=== PATIENT | female | born 1950 | race Caucasian/White ===

== ENCOUNTER 2016-09-20 11:57 | Day surgery (SDC) | payer OTHER ==
[2016-09-20] MEDS ORDERED: NS 1,000 ML IV ONE (12:02)
[2016-09-20] MEDS ORDERED: BENZOCAINE UNIT DOSE SPRAY HURRICAINE MM ONE (12:02)
[2016-09-20] MEDS ORDERED: fentaNYL 100 MCG/2 ML INJ IVP ONE (12:02)
[2016-09-20] MEDS ORDERED: MIDAZOLAM 2 MG/2 ML VIAL IVP ONE (12:02)
--- NOTE | 2016-09-20 13:51 | PDANEPAE ---
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 rheumatic - Pulmonary History Hx Sleep Apnea: No ANE Review of Systems Review of systems is: negative ANE Patient History - Allergies Allergies/Adverse Reactions: Sulfa (Sulfonamide Antibiotics) Allergy (Verified 09/20/16 12:01) - Home Medications Home medications: home medication list seen and reviewed Home Medications: Atenolol 25 mg PO DAILY 09/20/16 [Last Taken 09/20/16 07:00] Calcium 500 mg PO DAILY 09/20/16 [Last Taken 09/19/16 07:00] LYSINE 1,000 mg PO DAILY 09/20/16 [Last Taken 09/19/16 07:00] Multivitamin 1 tab PO DAILY 09/20/16 [Last Taken 09/19/16 07:00] Tylenol 1,000 mg PO PRN 09/20/16 [Last Taken 09/19/16] Vitamin B12 PO DAILY 09/20/16 [Last Taken 09/19/16 07:00] Vitamin C 500 mg PO DAILY 09/20/16 [Last Taken 09/19/16 07:00] Vitamin D3 2,000 unit PO DAILY 09/20/16 [Last Taken 09/19/16 07:00] Voltaren 2 gm PRN 09/20/16 [Last Taken 09/20/16 07:00] - Anes Hx Anes Hx: no prior problems - Smoking Hx Smoking Status: Former smoker ANE Labs/Vital Signs - Vital Signs Height: 163 cm Weight: 54.4 kg ANE Physical Exam - Airway Neck exam: FROM Mallampati Score: Class 1 Mouth exam: normal dental/mouth exam - Pulmonary Pulmonary: no respiratory distress - Cardiovascular Cardiovascular: regular rate and rhythym - ASA Status ASA Status: III ANE Anesthesia Plan Anesthesia Plan: GA with mask
[2016-09-20] MEDS ORDERED: PROPOFOL 200 MG/20 ML VIAL ONE ×2 (13:52)
--- NOTE | 2016-09-21 15:12 | ECHO ---
[id number] + + [address] : : [place] [id number] : : [phone] + + Transesophageal Echocardiographic Report + -------+ :Name: VEL CASTREJON JStudy Date: 09/20/2016 01:45 PM : : Hospital Admission Number: [id number] Locati on: [facility]: :: 1950 Gender: Female : :Age: 66 yrs Race: WH : :Reason For Study: evaluate /AI : :History: rheumatic heart disease : + -------+ MMode/2D Measurements \T\ Calculations LVOT diam: 2.2 cm LVOT area: 3.8 cm2 Normal Measurement Values: + + :LVIDd (3.5-5.7cm) IVSd (0.6-1.1cm) LVPWd (0.6-1.1cm) Aortic Root (2.0-3.7cm)Left Atrium (1.5-4.0cm): :LV Vol(d) (76-115ml) LV Vol(s) (29-48ml) Ejec Fraction (50-65%)PV David (0.6- 1.2m/s) TV David (0.4-1.0m/s) : :MV E David (0.8-1.0m/s)MV A David (0.3-1.0m/s)LVOT David (0.7-1.2m/s) Asc Ao David ( 0.9-1.8m/s) : + + Doppler Measurements \T\ Calculations MV V2 mean: 89.2 cm/sec Ao V2 max: 413.3 cm/sec AI max david: 444.8 cm/sec MV mean P.3 mmHg Ao max P.3 mmHg AI max P.3 mmHg MV V2 VTI: 24.5 cm Ao mean P.0 mmHg AI dec slope: 347.1 cm/sec2 Ao V2 mean: 355.3 cm/secAI P1/2t: 375.3 msec Ao V2 VTI: 124.8 cm LV The left ventricle is normal in size and function. There is moderate concentric left ventricular hypertrophy. Ejection Fraction = 55-60%. RV The right ventricle is normal in size and function. Atria The left atrial size is normal. Right atrial size is normal. The interatrial septum is intact with no evidence for an atrial septal defect. Mitral Valve The mitral valve is normal in structure and function. There is no mitral valve stenosis. There is mild mitral regurgitation. Aortic Valve The aortic valve is trileaflet. Mild to moderate amount of calcification/thickening mainly on the leaflet tips. Severe valvular aortic stenosis. Max velocity across the AV 4.1m/s, 57/68 mmHg mean and max pressure gradients. Moderate to severe aortic regurgitation. Pulmonic Valve The pulmonic valve is normal in structure and function. There is no pulmonic valvular regurgitation. Tricuspid Valve The tricuspid valve is normal in structure and function. There is mild tricuspid regurgitation. Vessels Mild atherosclerotic plaque(s) in the ascending aorta. Pericardium There is no pericardial effusion. Conclusion A 2D transesophageal echocardiogram with Doppler and color flow Doppler was performed. The left ventricle is normal in size and function. There is moderate concentric left ventricular hypertrophy. There is mild mitral regurgitation. Mild to moderate amount of calcification/thickening mainly on the leaflet tips. Moderate to severe aortic regurgitation. Severe valvular aortic stenosis. Max velocity across the AV 4.1m/s, 57/68 mmHg mean and max pressure gradients. There is mild tricuspid regurgitation. Ejection Fraction = 55-60%. Final Reading Physician: Slava Valdovinos electronically signed on 09/21/2016 03:11 PM Ordering Physician: Slava Valdovinos Performed By: Slava Valdovinos
--- NOTE | 2016-09-23 08:49 | POSTANESTH ---
Post Anesthetic Evaluation Cardiovascular Status: Normal, Stable Respiratory Status: Normal, Stable Level of Consciousness/Mental Status: Can Participate in Eval Pain Control: Adequate, Prn Tx Ordered Nausea/Vomiting Control: Adequate, Prn Tx Ordered Complications Possibly Related to Anesthesia: None Noted
== END 2016-09-20 15:46 | disposition home or self-care (01) ==
LOC: FCATH 11:57
PROVIDERS: ATTEND Internal Medicine Cardiovascular Disease
PROC: B245ZZ4 Ultrasonography of Left Heart, Transesophageal (ICD-10-PCS; principal; 2016-09-20)
DX: I08.2 Rheumatic disorders of both aortic and tricuspid valves (principal); I10 Essential (primary) hypertension; I70.0 Atherosclerosis of aorta; Z82.49 Family history of ischemic heart disease and other diseases of the circulatory system; Z87.891 Personal history of nicotine dependence; Z88.2 Allergy status to sulfonamides
CPT/HCPCS: J2704

== ENCOUNTER → 2016-10-13 | Outpatient (CLI) | payer OTHER | LOC: CIMAGING 08:03 | PROVIDERS: ATTEND Thoracic Surgery (Cardiothoracic Vascular Surgery) | DX: I35.1 Nonrheumatic aortic (valve) insufficiency (principal); R91.1 Solitary pulmonary nodule | CPT/HCPCS: 71250-PO ==

== ENCOUNTER 2017-04-05 11:14 | Inpatient (IN) | payer OTHER ==
[2017-04-05] MEDS ORDERED: ASPIRIN EC 325 MG TAB PO ONE (11:18)
[2017-04-05] MEDS ORDERED: FAMOTIDINE 20 MG TAB PO ONE (11:18)
[2017-04-05] MEDS ORDERED: DIAZEPAM 5 MG TAB PO ONE (11:18)
[2017-04-05] MEDS ORDERED: NS 1,000 ML IV ONE (11:18)
[2017-04-05] MEDS ORDERED: diphenhydrAMINE 25 MG CAP PO ONE (11:18)
--- NOTE | 2017-04-05 11:36 | CPEKG ---
Heart Rate: 60 RR Interval: 1000 P-R Interval: 164 QRSD Interval: 82 QT Interval: 412 QTC Interval: 412 P Humphrey: 39 QRS Humphrey: -1 T Wave Humphrey: 40 EKG Severity - NORMAL ECG - EKG Impression: SINUS RHYTHM Electronically Signed By: Estevan Harper 05-Apr-2017 12:28:26
[2017-04-05 11:54] LABS: PLATELET COUNT 186 10^3/uL (150-400)
[2017-04-05 12:01] LABS: INR 0.91 (0.83-1.16); PROTIME(PATIENT) 12.5 SEC (12.0-15.0)
[2017-04-05] MEDS ORDERED: fentaNYL 100 MCG/2 ML INJ ONE (12:20)
[2017-04-05] MEDS ORDERED: LIDOCAINE 1% 300 MG/30 ML SDV ONE (12:20)
[2017-04-05] MEDS ORDERED: IOPAMIDOL (ISOVUE-370) 150 ML BTL IV ONE (12:20)
[2017-04-05] MEDS ORDERED: MIDAZOLAM 2 MG/2 ML VIAL ONE ×2 (12:20)
--- NOTE | 2017-04-05 12:51 | PDPROPOC ---
Sedation Plan of Care Sedation Plan of Care: vital signs stable, mental status noted, patient educated of risks, benefits, alternatives, patient can tolerate sedation ASA Classification: ASA 2 Planned drugs: fentanyl, midazolam Mallampati Score: Class 2 Mallampati Reference Image: Patient passed 3-3-2 rule?: Yes
--- NOTE | 2017-04-05 12:55 | PDGENHP ---
History & Physical Chief Complaint: SOB/Fatigue History of Present Illness: 66 year old female with symptomatic severe, rheumatic aortic stenosis and moderate to severe AI and mild pulmonary hypertension who presents for pre operative LHC in anticipation of AVR and Mitral valve ring tomorrow with Dr. Oconnor. Pertinent Past, Social, Family History: PMH: Rhematic Aortic stenosis, Moderate AI, Moderate MR. Soc hx: . former smoker (smoked 4 years) rare etoh Relevant Physical Exam: Awake, alert, appropriate Cardiorespiratory Assessment: S1/S2, 2/6 systolic murmer. CTAB
[2017-04-05] MEDS ORDERED: OXYCODONE/APAP 5/325 TAB PO PRN (13:56)
[2017-04-05] MEDS ORDERED: NITROGLYCERIN 0.4 MG BTL SL PRN (13:56)
[2017-04-05] MEDS ORDERED: ONDANSETRON 4 MG/2 ML VIAL IVP PRN (13:56)
[2017-04-05] MEDS ORDERED: HYDROCODONE/APAP 5/325 TAB PO PRN (13:56)
[2017-04-05] MEDS ORDERED: ATROPINE SULFATE 1 MG/10 ML SYR IVP PRN (13:56)
[2017-04-05] MEDS ORDERED: ACETAMINOPHEN 500 MG TAB PO PRN (15:26)
--- NOTE | 2017-04-05 15:26 | PDGENHP ---
History and Physical - Chief Complaint progressive rheumatic valvular disease - History of Present Illness 66 yo physically active female under surveillance for rheumatic valvular disease , noted by last echo to have worsening , AI and MR with a fall in LVEF to 55% range and onset of LVDD. Ascending aorta mildly dilated and measured at 3.[address] Admitted in advance of AVR, MV rpr/replace, possible ascending aortic replacement to complete surgical risk stratification. She is minimally symptomatic at a modified pace and has not had any wt gain, edema, orthopnea, palpitations, or presyncope. History Information - Allergies/Home Medication List Allergies/Adverse Reactions: Sulfa (Sulfonamide Antibiotics) Allergy (Mild, Verified 04/05/17 13:05) Rash Home Medications: Acetaminophen [Tylenol ES 500 mg (*)] 500 mg PO Q6 PRN 09/20/16 [Last Taken 08:00] Ascorbic Acid [Vitamin C 500 mg (*)] 500 mg PO DAILY 09/20/16 [Last Taken 08:00] Atenolol [Tenormin 25 mg (*)] 25 mg PO DAILY 09/20/16 [Last Taken 04/05/17 07:00 ] Cholecalciferol Vit D3 [Vitamin D3 (*)] 1,000 units PO DAILY 09/20/16 [Last Taken 04/04/17 21:00] Diclofenac Sodium 1% [Voltaren Gel (*)] 1 clark TP DAILY PRN 09/20/16 [Last Taken 04/05/17 07:00] Multivitamins [Multivitamin (*)] 1 each PO DAILY 09/20/16 [Last Taken 03/28/17 08:00] Herbals/Supplements -Info Only 1 ea PO DAILY 03/29/17 [Last Taken 04/04/17 21:00 ] Cyanocobalamin [Vitamin B12 (*)] 1,000 mcg PO DAILY 04/05/17 [Last Taken Unknown ] I have personally reviewed and updated: family history, medical history, social history, surgical history - Past Medical History hypertension Additional medical history: Rheumatic fever as a child with a systolic murmur over 31 yrs. Moderate LVH. Mild PHTN. Osteopenia. Raynaud's. - Surgical History Reports: appendectomy Additional surgical history: tonsillectomy - Social History Smoking Status: Former smoker (socially during college years) Review of Systems Review of Systems: Constitutional: Reports: other (mild fatigue) EENMT: Reports: no symptoms, other (wears glasses) Cardiac: Reports: other (occasional left chest heaviness/fullness, worse lying on her side) Respiratory: Reports: no symptoms Gastrointestinal: Reports: other (BM this am) Genitourinary: Reports: no symptoms Muscolosketal: Reports: no symptoms Skin: Reports: no symptoms Neurological: Reports: no symptoms Hematologic/Lymphatic: Reports: no symptoms Immunologic/Allergy: Reports: no symptoms Physical Exam Physical Exam: Constitutional: no apparent distress, appears nourished Eyes: anicteric sclera Ears, Nose, Mouth, Throat: moist mucous membranes, hearing normal, other (no visible dental disrepair) Cardiovascular: regular rate and rhythym, systolic murmur (harsh, loudest at apex), diastolic murmur (rumble RUSB) Peripheral Pulses: 0: femoral (R) (cath site soft, dressing CDI), 2+: dorsalis- pedis (R), dorsalis-pedis (L) Respiratory: clear to auscultation Gastrointestinal: soft, non-tender abdomen Genitourinary: no bladder fullness Skin: warm, no rashes or abrasions Musculoskeletal: other (symmetric tone) Psychiatric: interacting appropriately Lab Data & Imaging Review 04/05/17 11:35 04/05/17 11:35 WBC 6.49 10^3/uL (3.80-9.50) 04/05/17 11:35 RBC 4.50 10^6/uL (4.18-5.33) 04/05/17 11:35 Hgb 14.8 g/dL (12.6-16.3) 04/05/17 11:35 Hct 43.0 % (38.0-47.0) 04/05/17 11:35 MCV 95.6 fL (81.5-99.8) 04/05/17 11:35 MCH 32.9 pg (27.9-34.1) 04/05/17 11:35 MCHC 34.4 g/dL (32.4-36.7) 04/05/17 11:35 RDW 12.8 % (11.5-15.2) 04/05/17 11:35 Plt Count 186 10^3/uL (150-400) 04/05/17 11:35 MPV 10.6 fL (8.7-11.7) 04/05/17 11:35 Neut % (Auto) 59.9 % (39.3-74.2) 04/05/17 11:35 Lymph % (Auto) 32.2 % (15.0-45.0) 04/05/17 11:35 [place] % (Auto) 4.6 % (4.5-13.0) 04/05/17 11:35 Eos % (Auto) 2.2 % (0.6-7.6) 04/05/17 11:35 Baso % (Auto) 0.9 % (0.3-1.7) 04/05/17 11:35 Nucleat RBC Rel Count 0.0 % (0.0-0.2) 04/05/17 11:35 Absolute Neuts (auto) 3.89 10^3/uL (1.70-6.50) 04/05/17 11:35 Absolute Lymphs (auto) 2.09 10^3/uL (1.00-3.00) 04/05/17 11:35 Absolute Monos (auto) 0.30 10^3/uL (0.30-0.80) 04/05/17 11:35 Absolute Eos (auto) 0.14 10^3/uL (0.03-0.40) 04/05/17 11:35 Absolute Basos (auto) 0.06 10^3/uL (0.02-0.10) 04/05/17 11:35 Absolute Nucleated RBC 0.00 10^3/uL (0-0.01) 04/05/17 11:35 Immature Gran % 0.2 % (0.0-1.1) 04/05/17 11:35 Immature Gran # 0.01 10^3/uL (0.00-0.10) 04/05/17 11:35 PT 12.5 SEC (12.0-15.0) 04/05/17 11:35 INR 0.91 (0.83-1.16) 04/05/17 11:35 Sodium 146 mEq/L (135-145) H 04/05/17 11:35 Potassium 4.4 mEq/L (3.5-5.2) 04/05/17 11:35 Chloride 111 mEq/L (97-110) H 04/05/17 11:35 Carbon Dioxide 22 mEq/l (22-31) 04/05/17 11:35 Anion Gap 13 mEq/L (8-16) 04/05/17 11:35 BUN 15 mg/dL (7-23) 04/05/17 11:35 Creatinine 0.9 mg/dL (0.6-1.0) 04/05/17 11:35 Estimated GFR > 60 04/05/17 11:35 Glucose 79 mg/dL (70-100) 04/05/17 11:35 Calcium 9.8 mg/dL (8.5-10.4) 04/05/17 11:35 Magnesium 2.1 mg/dL (1.6-2.3) 04/05/17 11:35 Triglycerides 84 mg/dL (35-135) 04/05/17 11:35 Cholesterol 179 mg/dL (140-220) 04/05/17 11:35 Cholesterol Risk Factr 0.4 (0.2-1.0) 04/05/17 11:35 LDL Cholesterol, Calc 94 mg/dL (80-100) 04/05/17 11:35 LDL Risk Factor 0.5 (0.2-1.0) 04/05/17 11:35 VLDL Cholesterol 16 mg/dL (8-25) 04/05/17 11:35 Non-HDL Cholesterol 110 mg/dL (90-129) 04/05/17 11:35 HDL Cholesterol 69 mg/dL (40-85) 04/05/17 11:35 LDL/HDL Ratio 1.36 RATIO (1.00-3.22) 04/05/17 11:35 Cholesterol/HDL Ratio 2.59 RATIO (1.00-4.44) 04/05/17 11:35 Patient ABO/Rh O POSITIVE 04/05/17 12:00 Antibody Screen NEGATIVE 04/05/17 12:00 Imaging Review: [facility] reviewed with Dr Oconnor: Possible ostial RCA stenosis o/w angiographically nl coros US neg for hemodynamically sig stenosis. CTA chest 10/13/16: 3.9 cm asc aorta, 5 mm noncalcified pulmonary nodule Visualized and Interpreted EKG results: Yes EKG Interpretation: Positive for: normal sinsus rhythm (60) Assessment & Plan Assessment: Severe with moderate to severe AI 3.9 cm ascending aorta Moderate MR Questionable ostial RCA stenosis vs cath spasm Preserved LV systolic fx Plan: Bioprosthetic AVR MV ring annuloplasty Possible ascending aortic replacement Possible CABG x 1 with venous conduit Consents per Dr Oconnor in the morning
--- NOTE | 2017-04-05 16:54 | CPIP ---
[f rep st] INVASIVE CARDIAC PROCEDURE DATE OF PROCEDURE: 04/05/2017 PROCEDURE PERFORMED: Diagnostic left heart catheterization. INDICATION FOR PROCEDURE: Preoperative left heart catheterization in anticipation of aortic valve re placement and mitral valve repair tomorrow with Dr. Dat Oconnor, in the setting of severe rheumatic s ymptomatic aortic stenosis and moderate mitral regurgitation. PROCEDURE: After informed consent was obtained, Ms. Noonan was brought to the cardiac catheterizat ion lab where she was prepped and draped in a sterile fashion. Using the micropuncture modified Seld steven technique, a 6-Hebrew catheter was placed into the right common femoral artery without complica tions. A JL-4 catheter was used to take images of the left coronary anatomy in multiple projections. JL4 catheter was exchanged over a guidewire for a JR4 catheter. JR4 catheter was used to take imag es of the right coronary artery in multiple projections. The JR4 catheter was removed over a guidewi re without complications. Imaging of the right common femoral artery angiography site was obtained d emonstrating appropriate placement above the bifurcation and below the inguinal ligament with no evid ence of trauma to the right common femoral artery. Angio-Seal was deployed successfully without comp lications. FINDINGS: 1. Left main is normal size and caliber. It bifurcates into a left anterior descending and circumfl ex coronary artery. There is no evidence of coronary disease within the left main. 2. Left anterior descending is free of coronary artery disease. 3. Left circumflex vessel is a dominant vessel. There is no evidence of coronary disease within the right coronary artery. 4. The right coronary artery is free of coronary artery disease. There are some mild vasospasm of t he artery at the tip of the JR4 catheter. No evidence of coronary disease. CONCLUSION: 1. Normal coronary arteries. 2. No indication for coronary artery bypass graft surgery. 3. No attempts were made to cross the aortic valve or perform left ventriculogram in the setting of severe rheumatic calcific aortic stenosis. /[id number]/MODL
[2017-04-05] MEDS: SENNOSIDES/DOCUSATE SODIUM TAB PO SCH (20:58)
[2017-04-05] MEDS: MUPIROCIN 2% 22 GM OINT NS SCH (20:58)
[2017-04-05] MEDS ORDERED: CHLORHEXIDINE GLUC HIBICLENS 118 ML BTL TP SCH (21:00)
[2017-04-06] MEDS: MUPIROCIN 2% 22 GM OINT NS SCH ×2 (05:54→21:11)
[2017-04-06] MEDS ORDERED: MILRINONE/DEXTROSE/100 ML BAG IV ONE (06:18)
[2017-04-06] MEDS ORDERED: NA BICARBONATE 50 MEQ/50 ML VIAL ONE (06:18)
[2017-04-06] MEDS ORDERED: PROTAMINE SULFATE 50 MG/5 ML VIAL IVP ONE (06:18)
[2017-04-06] MEDS ORDERED: LIDOCAINE 2% 100 MG/5 ML SYR ONE (06:18)
[2017-04-06] MEDS ORDERED: ALBUMIN 5% 250 ML BOTTLE IV ONE ×2 (06:18→13:15)
[2017-04-06] MEDS ORDERED: CALCIUM CHLORIDE 1 GM/10 ML INJ ONE (06:18)
[2017-04-06] MEDS ORDERED: ADENOSINE 6 MG/2 ML VIAL ONE (06:19)
[2017-04-06] MEDS ORDERED: niCARdipine/NACL/200 ML BAG IV ONE (06:19)
[2017-04-06] MEDS ORDERED: MAGNESIUM SULFATE 1 GM/2 ML VIAL ONE (06:19)
[2017-04-06] MEDS ORDERED: ceFAZolin 1 GM VIAL ONE (06:19)
[2017-04-06] MEDS ORDERED: HEPARIN 10,000 UNIT/10 ML MDV (1,000 UNIT/ML) ONE (06:19)
[2017-04-06] MEDS ORDERED: DOPamine/DEXTROSE/250 ML BAG IV ONE (06:19)
[2017-04-06] MEDS ORDERED: CITRATE DEXTROSE SOLN 500 ML BAG ONE (06:19)
[2017-04-06] MEDS ORDERED: methylPREDNISolone SOD SUCC 1 GM/8 ML VIAL ONE (06:19)
[2017-04-06] MEDS ORDERED: AMIODARONE HCL 150 MG/3 ML VIAL ONE (06:19)
[2017-04-06] MEDS ORDERED: INSULIN REGULAR HUMAN 100 UNIT in NS 100 ML IV ONE (07:00)
[2017-04-06] MEDS ORDERED: NOREPINEPHRINE BITARTRATE 16 MG in NS 250 ML IV ONE (07:00)
[2017-04-06] MEDS ORDERED: ceFAZolin 2 GM/SWFI 2 GM/20 ML SYR IVP ONE (07:00)
[2017-04-06] MEDS ORDERED: niCARdipine/NACL 200 ML IV ONE (07:00)
[2017-04-06] MEDS ORDERED: CITRATE DEXTROSE SOLN 500 ML BAG MISC ONE (07:00)
[2017-04-06] MEDS ORDERED: MANNITOL 25% 12.5 GM/50 ML VIAL IVP ONE (07:00)
[2017-04-06] MEDS ORDERED: PHENYLEPHRINE HCL 50 MG in NS 250 ML IV ONE (07:00)
[2017-04-06] MEDS ORDERED: TRANEXAMIC ACID 1,000 MG in NS (SYRINGE) 50 ML IV ONE (07:00)
[2017-04-06] MEDS ORDERED: VERAPAMIL 5 MG, NITROGLYCERIN 2.5 MG, HEPARIN 500 UNIT, SODIUM BICARBONATE 0.2 MEQ in L... MISC ONE (07:00)
[2017-04-06] MEDS ORDERED: SODIUM BICARBONATE 20 MEQ, LIDOCAINE 1% 10 ML in NORMOSOL-R 1,000 ML MISC ONE (07:00)
[2017-04-06] MEDS ORDERED: LR 1,000 ML IV ONE (07:51)
[2017-04-06] MEDS ORDERED: MIDAZOLAM 2 MG/2 ML VIAL IVP ONE (08:22)
--- NOTE | 2017-04-06 08:22 | PDANEPAE ---
ANE History of Present Illness 66 yo for avr/mvr ANE Past Medical History - Cardiovascular History Hx CHF / Valvular Disease: Yes - Pulmonary History Hx Oxygen in Use at Home: No Hx Sleep Apnea: No Sleep Apnea Screening Result - Last Documented: Negative - Endocrine History Hx Diabetes: No - Chronic Pain History Chronic Pain: No ANE Review of Systems Review of Systems: - Exercise capacity METS (RN): 4 METS ANE Patient History - Allergies Allergies/Adverse Reactions: Sulfa (Sulfonamide Antibiotics) Allergy (Mild, Verified 04/05/17 13:05) Rash - Home Medications Home medications: home medication list seen and reviewed Home Medications: Acetaminophen [Tylenol ES 500 mg (*)] 500 mg PO Q6 PRN 09/20/16 [Last Taken 08:00] Ascorbic Acid [Vitamin C 500 mg (*)] 500 mg PO DAILY 09/20/16 [Last Taken 08:00] Atenolol [Tenormin 25 mg (*)] 25 mg PO DAILY 09/20/16 [Last Taken 04/05/17 07:00 ] Cholecalciferol Vit D3 [Vitamin D3 (*)] 1,000 units PO DAILY 09/20/16 [Last Taken 04/04/17 21:00] Diclofenac Sodium 1% [Voltaren Gel (*)] 1 clark TP DAILY PRN 09/20/16 [Last Taken 04/05/17 07:00] Multivitamins [Multivitamin (*)] 1 each PO DAILY 09/20/16 [Last Taken 03/28/17 08:00] Herbals/Supplements -Info Only 1 ea PO DAILY 03/29/17 [Last Taken 04/04/17 21:00 ] Cyanocobalamin [Vitamin B12 (*)] 1,000 mcg PO DAILY 04/05/17 [Last Taken Unknown ] - NPO status NPO Status: no food or drink >8 hours NPO Since - Liquids (Date): 04/05/17 NPO Since - Liquids (Time): 23:00 NPO Since - Solids (Date): 04/05/17 NPO Since - Solids (Time): 20:00 - Smoking Hx Smoking Status: Former smoker (socially during college years) ANE Labs/Vital Signs - Labs Result Diagrams: 04/05/17 11:35 04/06/17 03:56 - Vital Signs Blood Pressure: 111/69 Heart Rate: 59 Respiratory Rate: 16 O2 Sat (%): 95 Height: 5 ft 4.96 in Weight: 55.8 kg ANE Physical Exam - Airway Neck exam: FROM Mallampati Score: Class 2 Mouth exam: normal dental/mouth exam - Pulmonary Pulmonary: no respiratory distress - Cardiovascular Cardiovascular: regular rate and rhythym - ASA Status ASA Status: III ANE Anesthesia Plan Anesthesia Plan: general endotracheal anesthesia Lines/Monitors: arterial line, central line, DERRICK
[2017-04-06] MEDS ORDERED: DEXMEDETOMIDINE/NS 4MCG/ML 50 ML BTL IV ONE ×2 (08:28→11:46)
[2017-04-06] MEDS ORDERED: fentaNYL 250 MCG/5 ML INJ ONE (08:29)
[2017-04-06] MEDS ORDERED: REMIFENTANIL HCL 1 MG VIAL ONE (08:29)
[2017-04-06] MEDS ORDERED: PROPOFOL/EMULSION 500 MG/50 ML BOTTLE IV ONE (08:29)
[2017-04-06] MEDS ORDERED: ROCURONIUM 100 MG/10 ML VIAL ONE (08:33)
[2017-04-06] MEDS ORDERED: SUGAMMADEX SODIUM 200 MG/2 ML VIAL IVP ONE (12:32)
[2017-04-06] MEDS ORDERED: ONDANSETRON 4 MG/2 ML VIAL ONE (12:32)
[2017-04-06] MEDS ORDERED: D50W 25 GM/50 ML SYR IVP PRN (13:02)
[2017-04-06] MEDS ORDERED: PANTOPRAZOLE SODIUM 40 MG VIAL IVP ONE (13:02)
[2017-04-06] MEDS ORDERED: BISACODYL 10 MG SUPP PR PRN (13:02)
[2017-04-06] MEDS ORDERED: fentaNYL 100 MCG/2 ML INJ IVP PRN (13:02)
[2017-04-06] MEDS ORDERED: LACTULOSE 20 GM/30 ML UDCUP PO PRN (13:02)
[2017-04-06] MEDS ORDERED: SODIUM CL NASAL 45 ML BTL EACHNARE PRN (13:02)
[2017-04-06] MEDS ORDERED: MAGNESIUM HYDROXIDE 30 ML UDCUP PO PRN (13:02)
[2017-04-06] MEDS ORDERED: CEPACOL LOZENGE PO PRN (13:02)
[2017-04-06] MEDS ORDERED: MAGNESIUM SULF 2 GM/WATER 50 ML IV ONE (13:02)
[2017-04-06] MEDS ORDERED: ACETAMINOPHEN 650 MG SUPP PR PRN (13:02)
[2017-04-06] MEDS ORDERED: MEPERIDINE 25 MG/ML SYR IVP PRN (13:02)
[2017-04-06] MEDS ORDERED: POTASSIUM Cl (KCl) 50 ML IV PRN (13:02)
[2017-04-06] MEDS ORDERED: INSULIN REGULAR HUMAN 100 UNIT in NS 100 ML IV SCH (13:30)
[2017-04-06] MEDS: NS 1,000 ML IV SCH ×2 (13:38→19:49)
[2017-04-06] MEDS: ALBUMIN 5% 250 ML IV PRN ×2 (13:39→13:41)
[2017-04-06] MEDS: SENNOSIDES/DOCUSATE SODIUM TAB PO SCH ×2 (13:40→20:12)
--- NOTE | 2017-04-06 13:44 | GOP ---
[f rep st] OPERATIVE REPORT DATE OF OPERATION: 04/06/2017 SURGEON: Dat Oconnor DO NANOELECTRONICS ENGINEER: Nicholas Jewell PA-C. ANESTHESIA: Jacky Phipps MD. PREOPERATIVE DIAGNOSIS: Mitral regurgitation, critical aortic stenosis, ascending aortic enlargement, ostial right coronary occlusion. POSTOPERATIVE DIAGNOSIS: Mitral regurgitation, critical aortic stenosis, ascending aortic enlargement, ostial right coronary occlusion. PROCEDURE PERFORMED: 1. Aortic valve replacement with a #23 Magna bioprosthesis. 2. Mitral ring annuloplasty with a #26 Physio ring. 3. Replaced the ascending aorta with a #22 Hemashield graft. 4. Saphenous vein graft to the right coronary artery. 5. Endoscopic vein harvest. 6. Ligation of left atrial appendage. FINDINGS: DESCRIPTION OF PROCEDURE: The patient was consented for surgery, brought to the operating room, intubated. Monitoring lines were placed. She was prepped and draped in sterile classical manner. Sternotomy was performed after a time- out was confirmed with the team. She was heparinized, cannulated in the transverse arch with bicaval cannulas. Cardiopulmonary bypass was begun while vein was harvested endoscopically by SALENA Lopez, who first assisted throughout the procedure. The vein was excellent quality at 3.5 mm. Cardioplegic arrest was obtained with antegrade cardioplegia, retrograde cardioplegia, topical hypothermia, and systemic cooling. Initially, the mitral valve was exposed. The left atrium was moderately enlarged. The valve itself appeared to be rheumatic without calcification or significant stenosis. I then placed circumferential annuloplasty suture rings and sized the patient for a 26 ring which was sutured in place without difficulty. The leaflets were actually quite soft and pliable. We then closed the left atrium. We then exposed the aortic valve and excised the ascending aorta up to the innominate artery. There was a thin-walled 4.2 cm structure in the widest dimension. Heavily calcified bicuspid valve was excised. The anulus was debrided. The LV chamber was irrigated. It was actually a rather large valve for a small woman. We were able to size her for a 23 mm Magna valve which was sutured in place with interrupted 2-0 Tycron pledgeted mattress sutures in a supra-annular position. We then beveled the graft and sewed it end-to-side both distally and proximally with continuous running 3-0 Prolene reinforced in several sites on both the proximal and distal anastomosis. We then ligated the left atrial appendage with silk ties since it was very narrow based and quite small without thrombus. We then bypassed the mid right coronary artery with vein graft which was then brought off the ascending aorta with a cross-clamp on. The cross-clamp was removed with suction on the ascending aortic vent. Spontaneous cardiac activity was noted to resume. She was kept in Trendelenburg until no further air was identified. She was intermittently aspirated through the apex as well. After weaning from bypass, the heparin was reversed with protamine. The cannula was removed and oversewn. Two ventricular pacing wires, 2 mediastinal, and 1 right pleural drain were placed. The thymic fat and pericardium were closed. Chest was closed in standard fashion. Echo revealed excellent mitral function without regurg and excellent aortic valvular function without regurgitation. The sternum was closed in standard fashion. Patient was returned to ICU in stable condition. /[id number]/MODL MTDD
[2017-04-06] MEDS ORDERED: fentaNYL 25 MCG PATCH TD SCH (14:00)
[2017-04-06] MEDS ORDERED: ceFAZolin 2 GM/DEXTROSE 100 ML IV SCH (14:00)
[2017-04-06] MEDS: ceFAZolin 2 GM/SWFI 2 GM/20 ML SYR IVP SCH ×2 (14:25→21:04)
--- NOTE | 2017-04-06 14:26 | CPEKG ---
Heart Rate: 104 RR Interval: 577 P-R Interval: 156 QRSD Interval: 76 QT Interval: 380 QTC Interval: 500 P Comstock: 79 QRS Comstock: 75 T Wave Comstock: -38 EKG Severity - BORDERLINE ECG - EKG Impression: SINUS TACHYCARDIA EKG Impression: BORDERLINE PROLONGED QT INTERVAL Electronically Signed By: Estevan Harper 06-Apr-2017 17:47:29
[2017-04-06] MEDS: FAMOTIDINE 20 MG/NACL 50 ML IV SCH ×2 (14:55→20:42)
[2017-04-06] MEDS: CHLORHEXIDINE GLUCONATE 15 ML UDL PO SCH ×2 (15:32→20:11)
[2017-04-06] MEDS: ONDANSETRON 4 MG/2 ML VIAL IVP PRN ×2 (16:29→20:42)
[2017-04-06] MEDS: METOCLOPRAMIDE 10 MG/2 ML VIAL IVP PRN (16:29)
--- NOTE | 2017-04-06 16:33 | ASMTCASEMG ---
Living Arrangements What is your living Answers: With Spouse arrangement? Who do you live with? Type Of Residence What kind of residence do Answers: House you live in? Discharge Plan Comments Coordination Status Comments Notes: Patient is a 66yo female who was admitted for severe aortic stenosis and mitral regurgitation. Patient went for surgery today. OT/PT/cardiac rehab have been ordered. Awaiting therapies recommendations. CM will follow. Date Signed: 04/06/2017 04:33 PM Electronically Signed By:Summer Grier LCSW
--- NOTE | 2017-04-06 16:40 | POSTANESTH ---
Post Anesthetic Evaluation Cardiovascular Status: Normal, Stable Respiratory Status: Other, See Comment Level of Consciousness/Mental Status: Can Participate in Eval Pain Control: Adequate, Prn Tx Ordered Nausea/Vomiting Control: Adequate, Prn Tx Ordered Complications Possibly Related to Anesthesia: None Noted (on vent ,sedated)
[2017-04-06 17:30] LABS: PLATELET COUNT 49 10^3/uL (150-400)
[2017-04-06] MEDS: KETOROLAC 15 MG/1 ML SDV IVP SCH (18:21)
[2017-04-07] MEDS: KETOROLAC 15 MG/1 ML SDV IVP SCH ×5 (00:08→23:03)
[2017-04-07] MEDS: HYDROCODONE/APAP 5/325 TAB PO PRN ×4 (01:37→18:38)
[2017-04-07] MEDS: METOCLOPRAMIDE 10 MG/2 ML VIAL IVP PRN (02:13)
[2017-04-07 04:19] LABS: PLATELET COUNT 56 10^3/uL (150-400)
[2017-04-07] MEDS: ceFAZolin 2 GM/SWFI 2 GM/20 ML SYR IVP SCH ×3 (05:08→21:02)
[2017-04-07] MEDS: HEPARIN 5,000 UNIT/0.5 ML SYR SC SCH ×2 (05:09→16:07)
--- NOTE | 2017-04-07 06:27 | SOAPPROG ---
[facility] Progress Note Assessment/Plan: Assessment: Plan: Objective: Vital Signs Temp Pulse Resp BP Pulse Ox 36.9 C 100 16 110/53 L 100 04/07/17 04:00 04/07/17 06:00 04/07/17 06:00 04/07/17 06:00 04/07/17 06:00 Laboratory Results 04/07/17 04:05 04/07/17 04:05 04/06/17 04/07/17 04/08/17 05:59 05:59 05:59 Intake Total 1400 2427 Output Total 2830 Balance 1400 -403 PT 12.5 SEC (12.0-15.0) 04/05/17 11:35 INR 0.91 (0.83-1.16) 04/05/17 11:35 ICD10 Worksheet Patient Problems: Problems Problem Status Onset Aortic stenosis with mitral and aortic insufficiency Acute Ascending aortic aneurysm Acute Coronary artery anomaly Acute S/P AVR (aortic valve replacement) Acute S/P CABG x 1 Acute Status post mitral valve annuloplasty Acute
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
[2017-04-07] MEDS: PANTOPRAZOLE SODIUM 40 MG TAB PO SCH (08:47)
[2017-04-07] MEDS: ASPIRIN 81 MG CHEWABLE TAB PO SCH (08:48)
[2017-04-07] MEDS: SENNOSIDES/DOCUSATE SODIUM TAB PO SCH ×2 (08:48→21:01)
[2017-04-07] MEDS: MUPIROCIN 2% 22 GM OINT NS SCH ×2 (08:48→21:10)
[2017-04-07] MEDS: traMADol 50 MG TAB PO PRN ×2 (08:51→23:02)
[2017-04-07] MEDS ORDERED: ASPIRIN 81 MG CHEWABLE TAB TUBE PRN (09:00)
[2017-04-07] MEDS: ONDANSETRON DISINTEGRATING 4 MG TAB PO PRN ×2 (09:05→16:07)
[2017-04-07] MEDS ORDERED: WARFARIN SODIUM 2.5 MG TAB PO ONE (16:00)
[2017-04-07] MEDS ORDERED: ZOLPIDEM TARTRATE 5 MG TAB PO PRN (16:59)
[2017-04-07] MEDS ORDERED: DICLOFENAC SODIUM 1% 100 GM GEL TP PRN (17:10)
[2017-04-07] MEDS: ONDANSETRON 4 MG/2 ML VIAL IVP PRN (21:14)
[2017-04-07] MEDS: METOPROLOL TARTRATE 25 MG TAB PO SCH (23:03)
[2017-04-08 04:02] LABS: PLATELET COUNT 69 10^3/uL (150-400)
[2017-04-08 04:12] LABS: INR 1.34 (0.83-1.16); PROTIME(PATIENT) 16.8 SEC (12.0-15.0)
[2017-04-08] MEDS: KETOROLAC 15 MG/1 ML SDV IVP SCH (06:14)
[2017-04-08] MEDS: traMADol 50 MG TAB PO PRN ×3 (06:15→14:39)
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
[2017-04-08] MEDS ORDERED: FUROSEMIDE 40 MG/4 ML VIAL IVP ONE (08:05)
[2017-04-08] MEDS ORDERED: POTASSIUM CL 20 MEQ TAB PO ONE (08:05)
[2017-04-08] MEDS ORDERED: MELATONIN 3 MG TAB PO PRN (08:10)
[2017-04-08] MEDS: SENNOSIDES/DOCUSATE SODIUM TAB PO SCH ×2 (08:37→20:17)
[2017-04-08] MEDS: MULTIVITAMINS 1 EACH TAB PO SCH (08:38)
[2017-04-08] MEDS: CHOLECALCIFEROL VIT D3 1,000 UNITS TAB PO SCH (08:38)
[2017-04-08] MEDS: ASPIRIN 81 MG CHEWABLE TAB PO SCH (08:39)
[2017-04-08] MEDS: CYANO/VITAMIN B12 1000 MCG TAB PO SCH (08:39)
[2017-04-08] MEDS: METOPROLOL TARTRATE 25 MG TAB PO SCH ×2 (08:40→20:17)
[2017-04-08] MEDS: ASCORBIC ACID 500 MG TAB PO SCH (08:40)
[2017-04-08] MEDS: PANTOPRAZOLE SODIUM 40 MG TAB PO SCH (09:48)
[2017-04-08] MEDS: MUPIROCIN 2% 22 GM OINT NS SCH (09:48)
[2017-04-08] MEDS: POLYETHYLENE GLYCOL 3350 17 GM PKT PO PRN (11:43)
[2017-04-08] MEDS ORDERED: WARFARIN SODIUM 2.5 MG TAB PO ONE (16:00)
[2017-04-08] MEDS: HYDROCODONE/APAP 5/325 TAB PO PRN ×2 (16:29→21:22)
[2017-04-09] MEDS: HYDROCODONE/APAP 5/325 TAB PO PRN ×2 (04:16→15:57)
[2017-04-09 04:50] LABS: PLATELET COUNT 51 10^3/uL (150-400)
[2017-04-09 05:01] LABS: INR 1.82 (0.83-1.16); PROTIME(PATIENT) 21.2 SEC (12.0-15.0)
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
[2017-04-09] MEDS: SENNOSIDES/DOCUSATE SODIUM TAB PO SCH ×3 (08:35→21:19)
[2017-04-09] MEDS: PANTOPRAZOLE SODIUM 40 MG TAB PO SCH (08:36)
[2017-04-09] MEDS: ASCORBIC ACID 500 MG TAB PO SCH (08:36)
[2017-04-09] MEDS: METOPROLOL TARTRATE 25 MG TAB PO SCH (08:37)
[2017-04-09] MEDS: CYANO/VITAMIN B12 1000 MCG TAB PO SCH (08:37)
[2017-04-09] MEDS: CHOLECALCIFEROL VIT D3 1,000 UNITS TAB PO SCH (08:38)
[2017-04-09] MEDS: MULTIVITAMINS 1 EACH TAB PO SCH (08:39)
[2017-04-09] MEDS ORDERED: FUROSEMIDE 40 MG TAB PO SCH (09:00)
[2017-04-09] MEDS ORDERED: METOPROLOL TARTRATE 25 MG TAB PO ONE (09:31)
[2017-04-09] MEDS: POLYETHYLENE GLYCOL 3350 17 GM PKT PO PRN (09:33)
[2017-04-09] MEDS: FUROSEMIDE 40 MG/4 ML VIAL IVP SCH ×2 (09:34→14:17)
[2017-04-09] MEDS: POTASSIUM CL 20 MEQ TAB PO SCH ×2 (09:34→14:16)
[2017-04-09] MEDS ORDERED: MAGNESIUM CITRATE 300 ML BOTTLE PO ONE (10:33)
[2017-04-09] MEDS: traMADol 50 MG TAB PO PRN ×2 (14:16→21:09)
[2017-04-09] MEDS: ONDANSETRON DISINTEGRATING 4 MG TAB PO PRN (15:59)
--- NOTE | 2017-04-09 16:14 | ASMTCMCOM ---
CM Note CM Note Notes: PT recommending out-pt rehab/Cardiac rehab on discharge. Lives with . Date Signed: 04/09/2017 04:13 PM Electronically Signed By:Peggy Tristan LCSW
[2017-04-09] MEDS ORDERED: POTASSIUM CL 20 MEQ TAB PO ONE (19:30)
[2017-04-09] MEDS: METOPROLOL TARTRATE 50 MG TAB PO SCH (21:10)
[2017-04-10 04:12] LABS: INR 1.32 (0.83-1.16); PROTIME(PATIENT) 16.6 SEC (12.0-15.0)
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
[2017-04-10 08:05] VITALS: BP 104/59; PULSE 100; RESP 10; TEMP 98.4; O2SAT 93
[2017-04-10] MEDS ORDERED: SENNOSIDES/DOCUSATE SODIUM TAB PO PRN (09:00)
[2017-04-10] MEDS: METOPROLOL TARTRATE 50 MG TAB PO SCH (09:20)
[2017-04-10] MEDS: MULTIVITAMINS 1 EACH TAB PO SCH (09:20)
[2017-04-10] MEDS: FUROSEMIDE 40 MG TAB PO SCH ×2 (09:20→15:11)
[2017-04-10] MEDS: POTASSIUM CL 20 MEQ TAB PO SCH ×2 (09:20→15:11)
[2017-04-10] MEDS: PANTOPRAZOLE SODIUM 40 MG TAB PO SCH (09:20)
[2017-04-10] MEDS: ASCORBIC ACID 500 MG TAB PO SCH (09:20)
[2017-04-10] MEDS: CHOLECALCIFEROL VIT D3 1,000 UNITS TAB PO SCH (09:20)
[2017-04-10] MEDS: CYANO/VITAMIN B12 1000 MCG TAB PO SCH (09:20)
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
[2017-04-10] MEDS ORDERED: PNEUMOC 13-VAL CONJ-DIP CRM/PF 0.5 ML SYR IM ONE (13:39)
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
[2017-04-10] MEDS: traMADol 50 MG TAB PO PRN (15:21)
[2017-04-10] MEDS ORDERED: WARFARIN SODIUM 2.5 MG TAB PO ONE (16:00)
== END 2017-04-10 16:30 | disposition home or self-care (01) | DRG 217 ==
LOC: FCATH 11:14 → F2W 13:56 → F2N 04-06 07:19 → F2W 04-07 09:20
PROVIDERS: ADMIT Thoracic Surgery (Cardiothoracic Vascular Surgery); ATTEND Thoracic Surgery (Cardiothoracic Vascular Surgery)
PROC: B2111ZZ Fluoroscopy of Multiple Coronary Arteries using Low Osmolar Contrast (ICD-10-PCS; 2017-04-05)
PROC: 4A023N7 Measurement of Cardiac Sampling and Pressure, Left Heart, Percutaneous Approach (ICD-10-PCS; 2017-04-05)
PROC: 021009W Bypass Coronary Artery, One Artery from Aorta with Autologous Venous Tissue, Open Approach (ICD-10-PCS; principal; 2017-04-06 08:30)
PROC: 02UG0JZ Supplement Mitral Valve with Synthetic Substitute, Open Approach (ICD-10-PCS; principal; 2017-04-06 08:30)
PROC: 5A1221Z Performance of Cardiac Output, Continuous (ICD-10-PCS; principal; 2017-04-06 08:30)
PROC: 06BQ4ZZ Excision of Left Saphenous Vein, Percutaneous Endoscopic Approach (ICD-10-PCS; principal; 2017-04-06 08:30)
PROC: 02L70ZK Occlusion of Left Atrial Appendage, Open Approach (ICD-10-PCS; principal; 2017-04-06 08:30)
PROC: 02RX0JZ Replacement of Thoracic Aorta, Ascending/Arch with Synthetic Substitute, Open Approach (ICD-10-PCS; principal; 2017-04-06 08:30)
PROC: 02RF08Z Replacement of Aortic Valve with Zooplastic Tissue, Open Approach (ICD-10-PCS; principal; 2017-04-06 08:30)
PROC: 30233N1 Transfusion of Nonautologous Red Blood Cells into Peripheral Vein, Percutaneous Approach (ICD-10-PCS; 2017-04-07)
DX: I08.0 Rheumatic disorders of both mitral and aortic valves (principal); I77.810 Thoracic aortic ectasia; I24.0 Acute coronary thrombosis not resulting in myocardial infarction; D62 Acute posthemorrhagic anemia; D69.6 Thrombocytopenia, unspecified; I50.32 Chronic diastolic (congestive) heart failure; I27.20 Pulmonary hypertension, unspecified; I73.00 Raynaud's syndrome without gangrene; M85.80 Other specified disorders of bone density and structure, unspecified site
CPT/HCPCS: 82947-QW; 86022-90; 97116-GP; 97161-GP; 97166-GO; 97530-GO; 97530-GP; 97535-GO; C1760; C1768; G0009; G8978-GP-CJ; G8979-GP-CI; G8987-GO-CI; G8988-GO-CI; G8989-GO-CI; J0153; J0282; J0690; J1265; J1644; J1815; J1885; J1940; J2001; J2150; J2250; J2260; J2270; J2370; J2405; J2704; J2720; J2765; J2930; J3010; J3475; J3480; J7060; P9016; P9041; Q9967

== ENCOUNTER → 2017-04-18 | Outpatient (CLI) | payer OTHER | LOC: FIMAGING 07:50 | PROVIDERS: ATTEND Thoracic Surgery (Cardiothoracic Vascular Surgery) | DX: Z09 Encounter for follow-up examination after completed treatment for conditions other than malignant neoplasm (principal); J98.11 Atelectasis; J90 Pleural effusion, not elsewhere classified; Z98.890 Other specified postprocedural states; Z95.2 Presence of prosthetic heart valve; Z86.79 Personal history of other diseases of the circulatory system; Z95.1 Presence of aortocoronary bypass graft ==

== ENCOUNTER → 2017-05-01 | Outpatient (CLI) | payer OTHER | LOC: FIMAGING 10:42 | PROVIDERS: ATTEND Thoracic Surgery (Cardiothoracic Vascular Surgery) | DX: Z09 Encounter for follow-up examination after completed treatment for conditions other than malignant neoplasm (principal); Z98.890 Other specified postprocedural states; Z95.2 Presence of prosthetic heart valve; Z86.79 Personal history of other diseases of the circulatory system ==

== ENCOUNTER → 2017-05-22 | Outpatient (CLI) | payer OTHER | LOC: FIMAGING 11:02 | PROVIDERS: ATTEND Thoracic Surgery (Cardiothoracic Vascular Surgery) | DX: Z95.2 Presence of prosthetic heart valve (principal); Z98.890 Other specified postprocedural states; Z95.828 Presence of other vascular implants and grafts ==

== ENCOUNTER → 2017-06-15 | Outpatient (CLI) | payer OTHER | LOC: BHFA 10:45 | PROVIDERS: ATTEND Internal Medicine Cardiovascular Disease | DX: I25.812 Atherosclerosis of bypass graft of coronary artery of transplanted heart without angina pectoris (principal); Z95.2 Presence of prosthetic heart valve ==

== ENCOUNTER → 2017-12-22 | Outpatient (CLI) | payer OTHER | LOC: BHFA 09:15 | PROVIDERS: ATTEND Internal Medicine Cardiovascular Disease | DX: I25.10 Atherosclerotic heart disease of native coronary artery without angina pectoris (principal); E78.5 Hyperlipidemia, unspecified ==